=== PATIENT | female | born 1960 | race African-American/Black ===

== ENCOUNTER 2016-03-21 17:11 | Emergency (ER) | payer MEDICARE, MEDICAID ==
[~2016-03-21] VITALS: Ht 160 cm; Wt 77.6 kg
[2016-03-21 17:36] VITALS: BP 151/79
[2016-03-21] MEDS ORDERED: Ipratropium 0.02% Inh Soln 2.5ml UD HHN SCH (17:45)
[2016-03-21] MEDS ORDERED: PredniSONE 20mg tab ORAL ONE (17:45)
[2016-03-21] MEDS ORDERED: Albuterol ud Inhalation HHN SCH (17:45)
[2016-03-21] MEDS ORDERED: COMP-AIR NEBUL1 EACH MC (18:47)
[2016-03-21] MEDS ORDERED: FLOVENT2 PUFF2 INH (18:47)
[2016-03-21] MEDS ORDERED: PREDNISONE20 MG ORAL (18:47)
[2016-03-21] MEDS ORDERED: ALBUTEROL2.5 MG/3 M HHN (18:47)
[2016-03-21] MEDS ORDERED: ALBUTEROL SULF8.5 GM INH (18:47)
[2016-03-21] MEDS ORDERED: AZITHROMYCIN250 MG ORAL (18:47)
[2016-03-21 18:56] VITALS: BP 147/82
--- NOTE | 2016-03-23 07:10 | Emergency Room Report ---
History of Present Illness General Chief Complaint: General Complaint Source: Patient Present Illness HPI 55-year-old female presents ED complaining of chest tightness, cough, shortness of breath x2 weeks. Notes history of asthma. states patient smokes. Patient notes dry cough. Denies fevers or chills. Denies chest pain. Denies sick contacts or recent travel. No other aggravating or relieving factors. Denies any other associated symptoms Allergies: Coded Allergies: SULFA (SULFONAMIDE ANTIBIOTICS) (Verified Allergy, Intermediate, 03/21/16) Patient History Past Medical History: DM, asthma, COPD Pertinent Family History: none Social History: Denies: alcohol use, drug use, smoking Now: No Immunizations: UTD Reviewed Nursing Documentation: PMH: Agreed, PSxH: Agreed Nursing Documentation-PMH Past Medical History: No History, Except For Hx Asthma: Yes Hx COPD: Yes Hx Diabetes: Yes - type 2 Review of Systems All Other Systems: negative except mentioned in HPI Physical Exam Vital Signs Date Time Temp Pulse Resp B/P Pulse Ox O2 Delivery O2 Flow Rate FiO2 03/21/16 17:15 98.2 84 15 148/83 98 Room Air 03/21/16 17:42 21 Sp02 EP Interpretation: reviewed, normal General Appearance: no apparent distress, alert, GCS 15, non-toxic Head: normocephalic Eyes: bilateral eye PERRL, bilateral eye normal inspection ENT: normal ENT inspection Neck: normal inspection Respiratory: wheezing Cardiovascular #1: regular rate, rhythm, no edema Gastrointestinal: normal inspection Rectal: deferred Genitourinary: no CVA tenderness Musculoskeletal: normal inspection Neurologic: alert, oriented x3, responsive, motor strength/tone normal, sensory intact, speech normal Psychiatric: normal inspection Skin: normal inspection Lymphatic: normal inspection Medical Decision Making Diagnostic Impression: Primary Impression: COPD (chronic obstructive pulmonary disease) Qualified Codes: J44.9 - Chronic obstructive pulmonary disease, unspecified Additional Impression: Bronchitis ER Course Hospital Course 55-year-old female presents to ED complaining of cough , wheezing Differential diagnoses include: URI, bronchitis, asthma/COPD, pneumonia Clinical course Patient placed on stretcher. After initial history and physical I ordered prednisone and nebulizer treatment. Upon reassessment patient states cough and symptoms have improved. Findings consistent with bronchitis. Given patient's history of smoking we will treat with antibiotics Diagnosis - COPD, bronchitis Stable and discharged home with prescriptions for Rx prednisone, albuterol, Z- Ollie, Flovent. Instructed to followup with PMD. Return to ED if symptoms recur or worsen Last Vital Signs Date Time Temp Pulse Resp B/P Pulse Ox O2 Delivery O2 Flow Rate FiO2 03/21/16 18:56 97.9 92 20 147/82 98 Room Air 21 Status: improved Disposition: HOME, SELF-CARE Condition: Stable Scripts Azithromycin* (ZITHROMAX*) 250 Mg Tablet 250 MG ORAL DAILY, #6 TAB 0 Refills Take two tablets by mouth today, then take one tablet by mouth daily for four days Prov: AILYN VERNON M.D. 03/21/16 Nebulizer/Compressor (COMP-AIR NEBULIZER SYSTEM) 1 Each Each 1 EACH , #1 Prov: AILYN VERNON M.D. 03/21/16 Fluticasone Propionate (Flovent Hfa) 12 Gm Aer.w.adap 2 PUFFS INH TWICE A DAY, #1 EA 0 Refills Prov: AILYN VERNON M.D. 03/21/16 Prednisone* (PREDNISONE*) 20 Mg Tablet 40 MG ORAL DAILY, #10 TAB Prov: AILYN VERNON M.D. 03/21/16 Albuterol Sulfate* (ALBUTEROL SULFATE HHN*) 2.5 Mg/3 Ml Vial.neb 2.5 MG HHN Q4H Y for Shortness of Breath, #25 VIAL Prov: AILYN VERNON M.D. 03/21/16 Albuterol Sulfate* (ALBUTEROL SULFATE MDI*) 8.5 Gm Hfa.aer.ad 2 PUFF INH Q6H, #1 EA 0 Refills Prov: AILYN VERONN M.D. 03/21/16 Patient Instructions: Chronic Bronchitis AILYN VERNON M.D. Mar 23, 2016 07:10
== END 2016-03-21 18:56 | disposition home or self-care (01) ==
LOC: EMR 18:30
DX: J44.9 Chronic obstructive pulmonary disease, unspecified (principal); J45.909 Unspecified asthma, uncomplicated; E11.9 Type 2 diabetes mellitus without complications
CPT/HCPCS: 94640; 94664; 99284

== ENCOUNTER 2016-09-06 09:49 | Emergency (ER) | payer OTHER ==
[~2016-09-06] VITALS: Ht 160 cm; Wt 80.7 kg
[~2016-09-06 09:49] MED LIST: ALBUTEROL SULF8.5 GM INH; ALBUTEROL2.5 MG/3 M HHN; AZITHROMYCIN250 MG ORAL; COMP-AIR NEBUL1 EACH MC; FLOVENT2 PUFF2 INH; PREDNISONE20 MG ORAL
[2016-09-06 10:01] VITALS: BP 125/83
--- NOTE | 2016-09-06 10:22 | Emergency Room Report ---
History of Present Illness General Chief Complaint: Lower Back Pain or Injury Source: Patient, Medical Record Present Illness HPI The patient presents with bilateral mid back pain for 3 days. Denies any fevers or chills. She denies dysuria. In the past she's had a urinary tract infection. The pain is 4/10 (reported to RN 6/10) constant, not radiating. Past history is significant for polymyalgia rheumatica. She was on prednisone for a long period of time. She has avascular necrosis of the right hip. She walks with a cane. In addition she's had some left-sided chest pain associated with lumps in her breasts. This radiated to her left shoulder. This doesn't seem to be exertional. She denies any cardiac problems in the past. No numbness, incontinence, blood thinners. 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 Period: Hysterectomy 10 yrs ago Nursing Documentation-[facility] Past Medical History: No History, Except For Hx Asthma: Yes Hx COPD: Yes Hx Diabetes: Yes - type 2 Review of Systems All Other Systems: negative except mentioned in HPI Physical Exam Vital Signs Date Time Temp Pulse Resp B/P Pulse Ox O2 Delivery O2 Flow Rate FiO2 09/06/16 09:51 98.2 99 16 125/83 96 Room Air Sp02 EP Interpretation: reviewed, normal General Appearance: well appearing, no apparent distress, GCS 15 Head: normocephalic Eyes: bilateral eye PERRL, bilateral eye normal inspection ENT: moist mucus membranes Neck: supple Respiratory: lungs clear, normal breath sounds Cardiovascular #1: regular rate, rhythm Cardiovascular #2: 2+ radial (R) Gastrointestinal: normal inspection, normal bowel sounds, non tender, no mass, non-distended, overweight Musculoskeletal: normal range of motion, no calf tenderness, pelvis stable, tender - lumbar area, bilaterally, no point tenderness Neurologic: alert, oriented x3, motor strength/tone normal, DTRs symmetric, sensory intact Psychiatric: mood/affect normal Skin: normal inspection, warm/dry Medical Decision Making Diagnostic Impression: Primary Impression: Muscle spasm Additional Impression: UTI (urinary tract infection) Qualified Codes: N30.00 - Acute cystitis without hematuria ER Course Complex patient with non-traumatic back pain. H/O PMR, penitentiary steroid use, UTI, strain, DJD all are considerations. Also with chest pain (she believes associated with breast nodules). Consider cardiac origin. Evaluation with labs , EKG. Treatment with toradol. As non-traumatic and no red flag symptoms, no xrays ordered. She does not want narcotics and is leery of any medication. Cardiac eval negative. Evidence of UTI. ESR normal. Antibiotics begun. Patient improved with treatment. Patient stable for outpatient observation and treatment. Labs Test 09/06/16 10:00 09/06/16 10:35 Urine Color Yellow Urine Appearance Slightly cloudy Urine pH 6 (4.5-8.0) Urine Specific [place] 1.015 (1.005-1.035) Urine Protein Negative (NEGATIVE) Urine Glucose (UA) Negative (NEGATIVE) Urine Ketones Negative (NEGATIVE) Urine Occult Blood 1+ (NEGATIVE) Urine Nitrite Negative (NEGATIVE) Urine Bilirubin Negative (NEGATIVE) Urine Urobilinogen Normal MG/DL (0.0-1.0) Urine Leukocyte Esterase 3+ (NEGATIVE) Urine RBC 0-2 /HPF (0 - 2) Urine WBC 5-10 /HPF (0 - 2) Urine Squamous Epithelial Cells Moderate /LPF (NONE/OCC) Urine Bacteria None /HPF (NONE) White Blood Count 8.0 K/UL (4.8-10.8) Red Blood Count 5.01 M/UL (4.20-5.40) Hemoglobin 15.3 G/DL (12.0-16.0) Hematocrit 46.3 % (37.0-47.0) Mean Corpuscular Volume 92 FL (80-99) Mean Corpuscular Hemoglobin 30.6 PG (27.0-31.0) Mean Corpuscular Hemoglobin Concent 33.1 G/DL (32.0-36.0) Red Cell Distribution Width 11.9 % (11.6-14.8) Platelet Count 215 K/UL (150-450) Mean Platelet Volume 10.2 FL (6.5-10.1) Neutrophils (%) (Auto) 41.9 % (45.0-75.0) Lymphocytes (%) (Auto) 49.0 % (20.0-45.0) Monocytes (%) (Auto) 6.8 % (1.0-10.0) Eosinophils (%) (Auto) 1.1 % (0.0-3.0) Basophils (%) (Auto) 1.2 % (0.0-2.0) Erythrocyte Sedimentation Rate 12 MM/HR (0-30) Prothrombin Time 9.4 SEC (9.30-11.50) Prothromb Time International Ratio 0.9 (0.9-1.1) Activated Partial Thromboplast Time 27 SEC (23-33) Sodium Level 142 mEQ/L (135-145) Potassium Level 4.2 mEQ/L (3.4-4.9) Chloride Level 105 mEQ/L (98-107) Carbon Dioxide Level 25 mEQ/L (20-30) Anion Gap 12 (5-15) Blood Urea Nitrogen 9 mg/dL (7-23) Creatinine 1.0 mg/dL (0.5-0.9) Estimat Glomerular Filtration Rate > 60 mL/min (>60) Glucose Level 128 mg/dL (74-106) Calcium Level 9.3 mg/dL (8.6-10.2) Total Bilirubin 0.3 mg/dL (0.0-1.2) Aspartate Amino Transf (AST/SGOT) 17 U/L (5-40) Alanine Aminotransferase (ALT/SGPT) 13 U/L (3-33) Alkaline Phosphatase 73 U/L (35-104) Total Creatine Kinase 169 U/L (26-140) Troponin I < 0.30 ng/mL (<=0.30) Total Protein 6.8 g/dL (6.6-8.7) Albumin 4.0 g/dL (3.5-5.2) Globulin 2.8 g/dL Albumin/Globulin Ratio 1.4 (1.0-2.7) EKG Diagnostic Results Rate: normal ST Segments: no acute changes Rhythm Strip Diag. Results EP Interpretation: yes Rhythm: NSR, no PVC's, no ectopy Last Vital Signs Date Time Temp Pulse Resp B/P Pulse Ox O2 Delivery O2 Flow Rate FiO2 09/06/16 13:14 98.2 78 17 122/81 98 Room Air Status: improved Disposition: HOME, SELF-CARE Condition: Improved Scripts Methocarbamol* (ROBAXIN*) 500 Mg Tablet 500 MG PO TID, #10 TAB 0 Refills Prov: Mann Jones M.D. 09/06/16 Ibuprofen* (MOTRIN*) 600 Mg Tablet 600 MG ORAL Q6H Y for For Pain, #20 TAB Prov: Mann Jones M.D. 09/06/16 Nitrofurantoin Monohyd/M-Cryst* (MACROBID 100 MG*) 100 Mg Capsule 100 MG ORAL EVERY 12 HOURS, #14 CAP Prov: Mann Jones M.D. 09/06/16 Mann Jones M.D. Sep 06, 2016 10:22
[2016-09-06] MEDS ORDERED: Ketorolac 30mg Inj IV ONE (10:30)
[2016-09-06 11:28] LABS: ALANINE AMINOTRANSFERASE 13 U/L (3-33); ALBUMIN/GLOBULIN RATIO 1.4 (1.0-2.7); ANION GAP 12 (5-15); ASPARTATE AMINO TRANSFERASE 17 U/L (5-40); CALCIUM 9.3 mg/dL (8.6-10.2); CARBON DIOXIDE 25 mEQ/L (20-30); CHLORIDE 105 mEQ/L (98-107); GLOMERULAR FILTRATION RATE > 60 mL/min (>60); HEMOLYSIS 37; POTASSIUM 4.2 mEQ/L (3.4-4.9); SODIUM 142 mEQ/L (135-145); TOTAL PROTEIN 6.8 g/dL (6.6-8.7); TROPONIN I < 0.30 ng/mL (<=0.30)
[2016-09-06 11:34] LABS: BASOPHILS % (AUTO) 1.2 % (0.0-2.0); EOSINOPHILS % (AUTO) 1.1 % (0.0-3.0); MEAN CORPUSCULAR HEMOGLOBIN 30.6 PG (27.0-31.0); MEAN CORPUSCULAR HGB CONC 33.1 G/DL (32.0-36.0); MEAN CORPUSCULAR VOLUME 92 FL (80-99); MEAN PLATELET VOLUME 10.2 FL (6.5-10.1); MONOCYTES % (AUTO) 6.8 % (1.0-10.0); NEUTROPHILS % (AUTO) 41.9 % (45.0-75.0); PLATELET COUNT 215 K/UL (150-450); RED BLOOD COUNT 5.01 M/UL (4.20-5.40); RED CELL DISTRIBUTION WIDTH 11.9 % (11.6-14.8)
[2016-09-06 11:35] LABS: KETONES,URINE NEGATIVE (NEGATIVE); LEUKOCYTE ESTERASE ,URINE 3+ (NEGATIVE); NITRITE,URINE NEGATIVE (NEGATIVE); PH,URINE 6 (4.5-8.0); PROTEIN,URINE NEGATIVE (NEGATIVE); UROBILINOGEN,URINE NORMAL MG/DL (0.0-1.0)
[2016-09-06 11:37] LABS: APPEARANCE,URINE SLIGHTLY CLOUDY
[2016-09-06 11:47] LABS: INR 0.9 (0.9-1.1); PROTHROMBIN TIME 9.4 SEC (9.30-11.50)
[2016-09-06 11:47] LABS: RBC,URINE 0-2 /HPF (0 - 2); SQUAMOUS EPITHELIAL CELL,UR MODERATE /LPF (NONE/OCC)
[2016-09-06 12:50] LABS: ERYTHROCYTE SEDIMENTATION RATE 12 MM/HR (0-30)
[2016-09-06 13:00] VITALS: BP 122/81
[2016-09-06] MEDS ORDERED: NITROFURANTOIN100 M2 ORAL (13:04)
[2016-09-06] MEDS ORDERED: ROBAXIN500 MG PO (13:04)
[2016-09-06] MEDS ORDERED: IBUPROFEN600 MG ORAL (13:04)
[2016-09-06 13:14] VITALS: BP 122/81
== END 2016-09-06 13:15 | disposition home or self-care (01) ==
LOC: EMR 10:38
DX: M62.830 Muscle spasm of back (principal); N39.0 Urinary tract infection, site not specified; J44.9 Chronic obstructive pulmonary disease, unspecified; E11.9 Type 2 diabetes mellitus without complications
CPT/HCPCS: 36415; 80053; 81003; 82550; 84484; 85025; 85610; 85651; 85730; 93005; 96374; 99284; J1885